=== PATIENT | female | born 1980 | race African-American/Black ===

== ENCOUNTER 2020-04-11 13:00 | Emergency (ER) | payer MEDICAID, OTHER ==
[2020-04-13 12:57] LABS: SARS-CoV-2 MS2 Positive; SARS-CoV-2 N Gene Positive; SARS-CoV-2 S Gene Positive; SARS-CoV-2 orf1ab Positive
== END 2020-04-11 14:35 | disposition home or self-care (01) ==
LOC: NAV ERS 13:00
DX: U07.1 COVID-19 (principal)
CPT/HCPCS: 87635; 99283; U0003

== ENCOUNTER 2020-04-25 08:27 | Emergency (ER) | payer MEDICAID, OTHER ==
[2020-04-26 15:21] LABS: SARS-CoV-2 MS2 Positive; SARS-CoV-2 N Gene Negative; SARS-CoV-2 S Gene Positive; SARS-CoV-2 orf1ab Positive
== END 2020-04-25 09:05 | disposition home or self-care (01) ==
LOC: NAV ERS 08:27
DX: U07.1 COVID-19 (principal)
CPT/HCPCS: 87635; 99283; U0003

== ENCOUNTER 2020-05-02 21:05 | Emergency (ER) | payer MEDICAID, OTHER | END 2020-05-02 22:27 | disposition home or self-care (01) | LOC: NAV ERS 21:05 | DX: Z86.19 Personal history of other infectious and parasitic diseases (principal) | CPT/HCPCS: 99283 ==